=== PATIENT | male | born 1965 | race Caucasian/White ===

== ENCOUNTER 2016-10-02 07:32 | Day surgery (SDC) | payer OTHER ==
[2016-09-28 09:56] VITALS: BMI 38.0
[~2016-10-02 07:32] MED LIST: LACTATED RINGERS 1,000 ML IV SCH
[2016-10-02 07:45] VITALS: RESP 18; TEMP 98
[2016-10-02] MEDS ORDERED: LACTATED RINGERS 1,000 ML IV ONE (07:45)
[2016-10-02] MEDS ORDERED: LIDOCAINE 1% 20 ML VIAL (10MG/ML) FOR IV START INTRADERMA ONE (07:46)
[2016-10-02 07:51] LABS: Glucose,Whole Blood 106 mg/dL (75-99)
[2016-10-02] MEDS ORDERED: PROPOFOL 10 MG/ML 20 ML VIAL IV ONE (08:14)
--- NOTE | 2016-10-02 08:42 | P.PCN ---
Date of Procedure: 10/02/16 Procedure(s) Performed: Procedure: Colonoscopy and biopsy. Preoperative diagnosis: Screening for neoplasia. Postoperative diagnosis: 1. Sigmoid diverticulosis with no evidence of acute diverticulitis or strictures. 2. Small flat polyp around the hepatic flexure biopsied and a small/diminutive polyp in the distal sigmoid close to the rectosigmoid junction biopsied, but no large polyps or cancer. Preparation: HalfLytely prep. Sedation: Was provided by anesthesia. Brief clinical history: The patient is a 51-year-old male who is referred for this evaluation for screening for neoplasia age being his risk factor. He has no abdominal complaints, bleeding or anemia. No family history of colon cancer. This would be his first colonoscopy. Procedure: With the patient on his left lateral decubitus position and after informed consent and adequate sedation, the perianal area was inspected and it did not show any fissures or fistulas. There were no masses felt on digital rectal examination. The Olympus CFQ 160L video colonoscope was then inserted in the rectum in the usual fashion and advanced to the cecum. There were several diverticular orifices seen scattered in the sigmoid with no evidence of acute diverticulitis or chills. There was a small flat polyp around the hepatic flexure which was biopsied and there was a small/diminutive polyp in the distal sigmoid close to the rectosigmoid junction which was biopsied as well , but there were no large polyps or cancer. The mucosa appeared healthy. I retroflexed endoscope in the rectum before the endoscope was withdrawn. The patient tolerated the procedure well. Plan: The patient was reassured. Discussed dietary measures. I recommended repeat exam in 3-5 years. He will follow up with you as planned.
[2016-10-02 09:12] VITALS: BP 134/76; PULSE 70
== END 2016-10-02 09:28 | disposition home or self-care (01) ==
LOC: ORWHC2ENDO 07:32
DX: Z12.11 Encounter for screening for malignant neoplasm of colon (principal); D12.3 Benign neoplasm of transverse colon; K63.5 Polyp of colon; K57.30 Diverticulosis of large intestine without perforation or abscess without bleeding; I10 Essential (primary) hypertension; E11.9 Type 2 diabetes mellitus without complications; Z79.84 Long term (current) use of oral hypoglycemic drugs; Z79.899 Other long term (current) drug therapy; Z91.030 Bee allergy status
CPT/HCPCS: 88305; 45380; J2704

== ENCOUNTER 2017-01-15 07:05 | Emergency (ER) | payer OTHER ==
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
[2017-01-15 10:36] VITALS: BP 128/86; PULSE 82; RESP 16; TEMP 98
== END 2017-01-15 10:36 | disposition home or self-care (01) ==
LOC: EC 07:05
DX: S39.012A Strain of muscle, fascia and tendon of lower back, initial encounter (principal); S80.02XA Contusion of left knee, initial encounter; S40.012A Contusion of left shoulder, initial encounter; S50.02XA Contusion of left elbow, initial encounter; S20.212A Contusion of left front wall of thorax, initial encounter; I10 Essential (primary) hypertension; E11.9 Type 2 diabetes mellitus without complications; Z87.891 Personal history of nicotine dependence; Z79.84 Long term (current) use of oral hypoglycemic drugs; Z79.899 Other long term (current) drug therapy; Z91.030 Bee allergy status; V53.5XXA Driver of pick-up truck or van injured in collision with car, pick-up truck or van in traffic accident, initial encounter; Y92.410 Unspecified street and highway as the place of occurrence of the external cause
CPT/HCPCS: 72100; 99284

== ENCOUNTER → 2021-11-21 | Outpatient (CLI) | payer BC ==
[~2021-11-21] MED LIST changes: -LACTATED RINGERS 1,000 ML IV SCH; +REGADENOSON 0.4 MG/5 ML SYRINGE IV PRN
--- NOTE | 2021-11-21 11:56 | CA ---
Lexiscan Nuclear Stress Test Report Name: Jesus Cho Exam Date: 11/21/2021 09:08 Exam Location: [facility] Ht (in): 72 Wt (lb): 282 BSA: 2.47 Ordering Phys: Ryan Phillips MD Referring Phys: TUCKER, Technologist: Reji Castillo Age: 56 Gender: M : 1965 Procedure CPT: Indications: R94.31 ABNORMAL EKG ICD-10 Codes: Patient History: HTN, DIABETES TYPE 2, ABNORMAL ECG Medications: METFORMIN, JARDIANCE, GILIPIZIDE, LISINOPRIL/HCTZ Meds past 24 hrs: Pretest Chest Pain: STRESS TEST Lexiscan Protocol Exercise Duration (min:sec): 01:[address] Depressions (mm): Angina Score: Lei Score: Resting HR (bpm): 76 Peak HR (bpm): 98 Resting BP (mmHg): 127 / 79 Peak BP (mmHg): 162 / 85 MPHR: 162 Target HR: 138 % MPHR: 60 METS: 1.0 Total Dose: Peak Dose: Atropine: Double Product: 28578 BP Response: Stress Termination: Stress Symptoms: Stress Summary: ECG ANALYSIS Resting ECG: Stress ECG: CONCLUSIONS Nondiagnostic echocardiogram in response to Lexiscan Please follow-up on the Cardiolite portion separate report Dr. Vito Zuñiga MD (Electronically Signed) Final Date: 21 Nov 2021 11:55
--- NOTE | 2021-11-21 14:29 | NM ---
EXAMINATION TYPE: NM stress lexiscan cardiolite DATE OF EXAM: 11/21/2021 COMPARISON: NONE HISTORY: 56-year-old male abnormal EKG TECHNIQUE: After the intravenous administration of 9.9 mCi Tc 99m Sestamibi - Cardiolite resting SPE CT images acquired 45 minutes post injection. The patient received 0.4mg Lexiscan, 25.4 mCi Tc 99m Sestamibi - Stress images obtained [address] injection FINDINGS: Review of stress and rest SPECT images demonstrates possible reversibility along the inferolateral mi d to apical wall. Gated analysis shows normal wall motion with an estimated left ventricular ejection fraction of 61 %. TID is mildly increased at 1.21. IMPRESSION: Unable to exclude focal reversibility along the inferolateral mid to apical wall. In addition, TID is mildly increased at 1.21. This can be seen in the setting of multivessel inducible ischemia. Further evaluation recommended.
== END | disposition home or self-care (01) ==
LOC: RADNMMAIN 07:26
PROVIDERS: ATTEND Family Medicine
DX: R94.31 Abnormal electrocardiogram [ECG] [EKG] (principal)
CPT/HCPCS: 93017; 78452; A9500; J2785

== ENCOUNTER 2023-08-01 07:45 | Day surgery (SDC) | payer BC ==
[2023-07-31 12:06] VITALS: BMI 38.6
[~2023-08-01 07:45] MED LIST changes: +HYDROmorphone 0.5 MG/0.5 ML SYRINGE IVP PRN; +LACTATED RINGERS 1,000 ML IV SCH; -REGADENOSON 0.4 MG/5 ML SYRINGE IV PRN
[2023-08-01] MEDS ORDERED: LACTATED RINGERS 1,000 ML IV ONE (08:27)
[2023-08-01 08:32] LABS: Glucose,Whole Blood 124 mg/dL (70-110)
[2023-08-01 08:39] VITALS: TEMP 97.9
[2023-08-01] MEDS ORDERED: LIDOCAINE 1% INJ 10MG/ML (20 ML MDV) ONE (09:28)
[2023-08-01] MEDS ORDERED: PROPOFOL 10 MG/ML 20 ML VIAL IV ONE (09:28)
--- NOTE | 2023-08-01 09:43 | P.PCN ---
Date of Procedure: 08/01/23 Procedure(s) Performed: BRIEF HISTORY: Patient is a 58-year-old pleasant white male scheduled for an elective colonoscopy as a part of evaluation of prior history of colon polyps. Last colonoscopy was 8 years ago. PROCEDURE PERFORMED: Colonoscopy biopsy and snare polypectomy. PREOPERATIVE DIAGNOSIS: History of colon polyps. IV sedation per Anesthesia. PROCEDURE: After informed consent was obtained, the patient, was brought into the endoscopy unit. IV sedation was administered by Anesthesia under continuous monitoring. Digital rectal examination was normal. Initially the Olympus CF-160 flexible video colonoscope was then inserted in the rectum, gradually advanced into the cecum without any difficulty. Careful examination was performed as the scope was gradually being withdrawn. Ileocecal valve and the appendiceal orifice were visualized and appeared normal. Prep was excellent. Mucosa of the cecum, appeared normal. In the setting colon there was a 3 mm polyp that was removed by cold biopsy. In the transverse colon there was a 7 mm flat polyp removed by snare polypectomy. Rest of the ascending colon, transverse colon, descending colon, sigmoid colon, and rectum appeared normal. In the sigmoid: There was a 5 mm polyp removed by cold snare polypectomy. Retroflexion was performed in the rectum and no lesions were seen. The patient tolerated the procedure well. IMPRESSION: 3 mm ascending colon polyp status post cold biopsy 6 mm flat transverse colon polyp status post SNARE polypectomy 5 mm sigmoid colon polyp status post cold snare polypectomy RECOMMENDATIONS: Findings of this examination were discussed with the patient as well as his family. He was advised to follow with the biopsy results. If the biopsy result adenoma he can have a repeat colonoscopy in 5 years.
[2023-08-01 09:56] VITALS: RESP 16
[2023-08-01 10:04] LABS: Glucose,Whole Blood 95 mg/dL (70-110)
[2023-08-01 10:20] VITALS: BP 102/58; PULSE 75
== END 2023-08-01 10:42 | disposition home or self-care (01) ==
LOC: ORWHC2ENDO 07:45
PROVIDERS: ATTEND Internal Medicine Gastroenterology
DX: Z12.11 Encounter for screening for malignant neoplasm of colon (principal); D12.2 Benign neoplasm of ascending colon; D12.3 Benign neoplasm of transverse colon; Z86.010 Personal history of colon polyps; I10 Essential (primary) hypertension; E11.9 Type 2 diabetes mellitus without complications; Z87.891 Personal history of nicotine dependence; Z88.0 Allergy status to penicillin; Z98.890 Other specified postprocedural states; Z79.899 Other long term (current) drug therapy
CPT/HCPCS: 45380; 45385; J2001; J2704; 88305